=== PATIENT | female | born 1985 | race Caucasian/White ===

== ENCOUNTER 2016-08-24 12:32 | Emergency (ER) | payer MEDICAID ==
[~2016-08-24] VITALS: Ht 167.6 cm; Wt 92.5 kg
[2016-08-24 12:34] VITALS: Ht 167.6 cm; Wt 92.5 kg
[2016-08-24 14:07] LABS: URINE BLOOD (Dip) POC 1+ (NEGATIVE)
[2016-08-24] MEDS ORDERED: HYDR25SU23 PR (14:15)
[2016-08-24] MEDS ORDERED: METAM PO (14:16)
[2016-08-24] MEDS ORDERED: MAGN454C7 MC (14:17)
--- NOTE | 2016-08-24 15:45 | ERD ---
ER Documentation Chief Complaint Date/Time DATE: 08/24/16 TIME: 15:42 Chief Complaint Sent from MD for eval hemrrhoids HPI This is a 30-year-old female presents to the ER sent by her primary care doctor for evaluation of her hemorrhoids. Patient has had a hemorrhage over the last 3 days. Patient does have a history of hemorrhoids that she came . Patient admits to urinary frequency and dysuria. She denies any fevers or chills. She denies nausea vomiting or diarrhea. Patient denies any vaginal bleeding, pelvic pain, pelvic pressure, rectal pressure. She does admit to rectal pain secondary to hemorrhoids. Pain is worse whenever she has a bowel movement. ROS 12 point review of systems was done, all negative except per HPI. Medications Home Meds Active Scripts Magnesium Sulfate (Epsom Salt) 454 Gm Crystals, 454 GM MC BID for 3 Days Prov:GAUTAM MEDEL 08/24/16 Psyllium* (Metamucil*) 1 Pkt Susp, 1 PKT PO BID for 3 Days, PACKET Prov:GAUTAM MEDEL 08/24/16 Hydrocortisone Acetate (Anusol-Hc) 25 Mg Supp.rect, 1 SUPP KS BID Y for HEMORROID PAIN/ITCHING, #12 SUPP.RECT Prov:LIZYGAUTAM APONTE 08/24/16 Allergies Allergies: Coded Allergies: Penicillins (Unverified Allergy, Severe, 03/02/14) RE-ENTERED UNCODED ALLERGY CODED Uncoded Allergies: PCN (Allergy, Severe, 02/26/14) RESPIRATORY DISTRESS PMhx/Soc History of Surgery: Yes () Hx Alcohol Use: No Hx Substance Use: No Hx Tobacco Use: No Smoking Status: Never smoker Physical Exam Vitals Vital Signs Date Time Temp Pulse Resp B/P Pulse Ox O2 Delivery O2 Flow Rate FiO2 08/24/16 12:34 97.1 85 20 130/68 96 Physical Exam GENERAL: The patient is well developed and appropriate for usual state of health , in no apparent distress. HEENT: Atraumatic. CHEST: Clear to auscultation bilaterally. There are no rales, wheezes or rhonchi. HEART: Regular rate and rhythm. No murmurs, clicks, rubs or gallops. ABDOMEN: Soft, nontender and nondistended. Good bowel sounds. No rebound or guarding. No gross peritonitis. No gross organomegaly or masses. No Iyer sign or McBurney point tenderness. RECTAL: there is a moderately sized hemorrhoid in the rectum NEURO: Alert and oriented. SKIN: There is no apparent rash or petechia. The skin is warm and dry. Results 24 hrs Laboratory Tests Test 08/24/16 14:11 Bedside Urine pH (LAB) 6.5 Bedside Urine Protein (LAB) Negative Bedside Urine Glucose (UA) Negative Bedside Urine Ketones (LAB) Negative Bedside Urine Blood 1+ Bedside Urine Nitrite (LAB) Negative Bedside Urine Leukocyte Esterase (L Negative Procedures/MDM This is a 30-year-old female presents to the ER for hemorrhoids. At this time there is no evidence of a thrombosed hemorrhoid or any anal infection. Patient will be sent home with Epson salt, Metamucil, Anusol. Patient did not have a urinary tract infection on urine dip. He is afebrile and well-appearing. She does not have any vaginal bleeding, pelvic pain, vaginal discharge to indicate any problems with the . Patient has had a normal up to this point. Patient is to follow-up with her primary care doctor within 1-2 days return to ER sooner if symptoms worsen. My medical decision making with the patient she understands and agrees with plan. Departure Diagnosis: Primary Impression: Hemorrhoids Condition: Stable Patient Instructions: Treating Hemorrhoids: Self-Care Additional Instructions: Llame al doctor SYD y kristina margaux KARY PARA DENTRO DE 1-2 RAMIREZ.Dgale a la secretaria que nosotros le instruimos hacer esta kary.Avise o llame si kumar condicin se empeora antes de la kary. Regresa aqui si peor o no mejor. GAUTAM MEDEL Aug 24, 2016 15:45
== END 2016-08-24 14:27 | disposition home or self-care (01) ==
LOC: E/R 12:32
DX: O22.40 Hemorrhoids in pregnancy, unspecified trimester (principal); Z3A.00 Weeks of gestation of pregnancy not specified
CPT/HCPCS: 81003; Z7502; 99284

== ENCOUNTER 2016-10-03 10:09 | Inpatient (IN) | payer MEDICAID ==
[~2016-10-03] VITALS: Ht 167.6 cm; Wt 93.6 kg
[~2016-10-03 10:09] MED LIST: HYDR25SU23 PR; MAGN454C7 MC; METAM PO
[2016-10-03] MEDS ORDERED: PRENAT PO (10:29)
[2016-10-03 10:31] VITALS: Ht 167.6 cm; Wt 93.6 kg
[2016-10-03 10:32] VITALS: BP 130/81; PULSE 73; RESP 20
[2016-10-03] MEDS: LACTATED RINGER'S 1,000 ML IV SCH ×2 (10:46→16:59)
[2016-10-03] MEDS ORDERED: IBUPROFEN 600 MG TAB PO PRN (11:00)
[2016-10-03] MEDS ORDERED: LIDOCAINE 1% (MPF) 30 ML INJ INJ PRN (11:00)
[2016-10-03] MEDS ORDERED: MISOPROSTOL 200 MCG TAB PR PRN (11:00)
[2016-10-03] MEDS ORDERED: ACETAMINOPHEN/CODEINE #3 TAB PO PRN (11:00)
[2016-10-03] MEDS ORDERED: OXYTOCIN 30 UNITS/LR 500 ML IV SCH ×3 (11:00→19:15)
[2016-10-03] MEDS ORDERED: OXYTOCIN 30 UNITS/LR 500 ML IV PRN (11:00)
[2016-10-03] MEDS ORDERED: METHYLERGONOVINE 0.2 MG INJ IM PRN (11:00)
[2016-10-03] MEDS ORDERED: CARBOPROST 250 MCG INJ IM PRN (11:00)
[2016-10-03 11:40] LABS: BASOPHILS % 0.4 % (0.0-2.0); EOSINOPHILS # 0.2 10^3/ul (0.0-0.5); EOSINOPHILS % 1.8 % (0.0-7.0); HEMATOCRIT 36.2 % (37.0-47.0); LYMPHOCYTES % 23.7 % (15.0-51.0); MEAN CORPUSCULAR HEMOGLOBIN 29.3 pg (29.0-33.0); MEAN CORPUSCULAR HGB CONC 33.1 g/dl (32.0-37.0); MEAN CORPUSCULAR VOLUME 88.3 fl (82.0-101.0); MEAN PLATELET VOLUME 10.8 fl (7.4-10.4); MONOCYTE # 0.7 10^3/ul (0.3-0.9); MONOCYTES % 7.8 % (0.0-11.0); NEUTROPHIL # 5.5 10^3/ul (1.6-7.5); NEUTROPHILS % 65.9 % (39.0-77.0); PLATELET COUNT 283 10^3/UL (140-415); RED CELL DISTRIBUTION WIDTH 15.2 % (11.5-14.5); WHITE BLOOD COUNT 8.4 10^3/ul (4.8-10.8)
[2016-10-03 11:45] LABS: INR 0.95; PARTIAL THROMBOPLASTIN TIME 29.2 Sec (25.0-35.0); PROTIME 12.7 Sec (12.2-14.2)
[2016-10-03] MEDS ORDERED: LACTATED RINGER'S 1,000 ML IV PRN (12:00)
[2016-10-03] MEDS: BUTORPHANOL 2 MG INJ IV PRN (14:12)
[2016-10-04] MEDS: LACTATED RINGER'S 1,000 ML IV SCH ×2 (00:15→04:09)
[2016-10-04] MEDS: BUTORPHANOL 2 MG INJ IV PRN (00:32)
[2016-10-04] MEDS ORDERED: DIPHENHYDRAMINE 50 MG INJ IV PRN (02:30)
[2016-10-04] MEDS ORDERED: FENTAnyl 2MCG/ML-ROPIV 0.2% 100 ML BAG EPI SCH (02:30)
[2016-10-04] MEDS ORDERED: ONDANSETRON 4 MG INJ IV PRN (02:30)
[2016-10-04] MEDS ORDERED: NALOXONE (0.4 MG/ML) INJ IV PRN (02:30)
[2016-10-04] MEDS ORDERED: FENTAnyl 2MCG/ML-ROPIV 0.2% 100 ML ONE (02:32)
[2016-10-04] MEDS ORDERED: OXYTOCIN 30 UNITS/LR 500 ML IV SCH (08:38)
--- NOTE | 2016-10-04 08:43 | LDN ---
Date/Time of Note Date/Time of Note DATE: 10/04/16 TIME: 08:41 Delivery Summary of a viable baby girl weighing 3640 grams or 8#, 19.5" long, and with Appgars of 9/9. Weeks of Gestation 39 weeks Placenta Delivered: Spontaneously Meconium: none Episiotomy: No Perineal laceration: 1 Laceration repair: Very small first degree laceration repaired with 2-0 chromic. Anesthesia type: Epidural Estimated blood loss: 150 Sponge & Needle done & correct: Yes All needle counts correct: Yes Any foreign bodies felt in the: No (vagina) Problems: Delivery Information Sex Infant Sex: female Apgars 1 Minute: 9 5 Minute: 9 Suctioning Nose & mouth suctioned at darrius: Yes Delee suction performed: No Umbilical Cord Umbilical cord with: 3 Vessels Cord presentations: no nuchal cord Cord Blood was obtained: Yes Mother & Baby Disposition Disposition Mom & Baby to Maternity; Good: Yes Baby to NICU: No TIGIST NAJERA MD Oct 04, 2016 08:43
--- NOTE | 2016-10-04 08:50 | HP ---
Date/Time of Note Date/Time of Note DATE: 10/04/16 TIME: 08:43 OB - History Hx of Present Free Text/Dictation 30 y.o. A1 with an IUP at 39 weeks. Pt has had 3 prior vaginal deliveries and the last one was a for Breech and pt desires a . Pt is here for induction. Baby is about 3700 grams on US. Estimated Due Date: Oct 10, 2016 : 6 Para: 4 Spontaneous : 1 Care: Good Care Ultrasounds: Normal mid trimester US Obstetrical Complications: None Medical Complications: None, Respiratory (Asthma without recent exacerbations) Past Family/Social History * Past Medical, Surgical, Family and Obstetric Histories reviewed from chart. Blood Type: O+ Rubella: immune RPR/VDRL: Negative GBS Status: Negative HBsAG: Negative OB Admission Exam Vital Signs Vital Signs Vital Signs Date Time Temp Pulse Resp B/P Pulse Ox O2 Delivery O2 Flow Rate FiO2 10/03/16 10:32 98.2 73 20 130/81 Room Air Physical Exam HEENT: WNL Heart: Rhythm Normal Lungs: Clear Abdomen: WNL Extremities: Normal Reflexes: Normal Cervical Dilatation: 3cm Effacement: 75% Station: -3 Membranes: Intact Amniotic Fluid: Clear Heart Rate: 140's Accelerations: Accelerations Present Decelerations: No Decelerations Varibility: Moderate Contractions on Admission: < 5 Minutes Apart Last 72 hours Lab Results CBC & BMP 10/03/16 10:50 OB Assessment/Plan Reason for admission: induction of labor Other Assessment: For . Induction Method: AROM (First with pitocin augmentation only if needed.) TIGIST NAJERA MD Oct 04, 2016 08:50
[2016-10-04] MEDS ORDERED: OXYTOCIN 30 UNITS/LR 500 ML IV PRN (09:00)
[2016-10-04] MEDS ORDERED: OXYCODONE/ASPIRIN (4.88/325) TAB PO PRN (09:00)
[2016-10-04] MEDS ORDERED: WITCH HAZEL/GLYCERIN PAD PR PRN (09:00)
[2016-10-04] MEDS ORDERED: MISOPROSTOL 200 MCG TAB PR PRN (09:00)
[2016-10-04] MEDS ORDERED: METHYLERGONOVINE 0.2 MG INJ IM PRN (09:00)
[2016-10-04] MEDS ORDERED: LANOLIN 7 GM TUBE TOP PRN (09:00)
[2016-10-04] MEDS ORDERED: CARBOPROST 250 MCG INJ IM PRN (09:00)
[2016-10-04] MEDS ORDERED: BENZOCAINE 20% 56 ML SPRAY TOP PRN (09:00)
[2016-10-04 11:20] VITALS: BP 131/75; PULSE 72; RESP 16
[2016-10-04] MEDS: IBUPROFEN 600 MG TAB PO SCH ×3 (11:31→23:57)
[2016-10-04] MEDS: LACTATED RINGER'S 1,000 ML IV* SCH ×2 (14:40→19:00)
[2016-10-04 16:00] VITALS: BP 117/55; PULSE 79; RESP 16
[2016-10-04 19:30] VITALS: BP_SYST 121; PULSE 80; RESP 20
[2016-10-05] MEDS: LACTATED RINGER'S 1,000 ML IV* SCH ×2 (00:38→08:38)
[2016-10-05 04:00] VITALS: BP 129/61; PULSE 69; RESP 19
[2016-10-05] MEDS: IBUPROFEN 600 MG TAB PO SCH ×4 (05:39→23:56)
[2016-10-05 08:00] VITALS: BP 113/77; PULSE 65; RESP 65
--- NOTE | 2016-10-05 09:48 | PN ---
Date/Time of Note Date/Time of Note DATE: 10/05/16 TIME: 09:46 OB Subjective Subjective Subjective no c/o no b.m OB Objective Objective Objective vss afebrile fundus firm lochia mod ext edematous but no calf tenderness OB Assessment/Plan Other Assessment: stable post #1 Other plan: d/scharge home in am SANDOR ARITA MD Oct 05, 2016 09:48
[2016-10-05 09:50] LABS: BASOPHIL # 0.1 10^3/ul (0.0-0.1); BASOPHILS % 0.5 % (0.0-2.0); EOSINOPHILS # 0.2 10^3/ul (0.0-0.5); EOSINOPHILS % 2.1 % (0.0-7.0); HEMATOCRIT 33.2 % (37.0-47.0); LYMPHOCYTES # 2.7 10^3/ul (0.8-2.9); LYMPHOCYTES % 24.5 % (15.0-51.0); MEAN CORPUSCULAR HEMOGLOBIN 30.1 pg (29.0-33.0); MEAN CORPUSCULAR HGB CONC 33.1 g/dl (32.0-37.0); MEAN CORPUSCULAR VOLUME 90.7 fl (82.0-101.0); MEAN PLATELET VOLUME 10.8 fl (7.4-10.4); MONOCYTE # 0.7 10^3/ul (0.3-0.9); MONOCYTES % 6.2 % (0.0-11.0); NEUTROPHIL # 7.3 10^3/ul (1.6-7.5); NEUTROPHILS % 66.1 % (39.0-77.0); PLATELET COUNT 260 10^3/UL (140-415); RED BLOOD COUNT 3.66 10^6/ul (4.20-5.40); RED CELL DISTRIBUTION WIDTH 15.4 % (11.5-14.5); WHITE BLOOD COUNT 11.1 10^3/ul (4.8-10.8)
[2016-10-05 16:25] VITALS: BP 114/60; PULSE 64; RESP 18
[2016-10-05 19:20] VITALS: BP 113/67; PULSE 72; RESP 20
[2016-10-06 04:00] VITALS: BP 121/70; PULSE 68; RESP 19
[2016-10-06] MEDS: IBUPROFEN 600 MG TAB PO SCH ×2 (05:44→11:42)
--- NOTE | 2016-10-06 07:11 | DS ---
Date/Time of Note Date/Time of Note DATE: 10/06/16 TIME: 07:10 Obstetrical Discharge Record Final Diagnosis Final Diagnosis: Term delivered Vaginal Delivery Obstetrical Delivery: Spontaneous, Laceration, Repaired Condition on Discharge Physical Assessment Last Vitals: vss afebrile Voiding: Yes Bowel Movement: No Breast: Soft, non-tender Fundus: Firm Calf Tenderness: No Patient Condition: Stable SANDOR ARITA MD Oct 06, 2016 07:11
--- NOTE | 2016-10-06 07:12 | PD.PPDC ---
PRE PLANNING ADVISOR Discharge Instruction Diagnosis Final Diagnosis: s/p vaginal delivery after section Condition Patient Condition: Stable Diet Diet: Resume Regular Diet Activity/Restrictions Activity: May Shower Restrictions: No Lifting No Sexual Activity Nothing in the Vagina No Dorado No Tampons, douche Follow-up Follow-up with Physician: 2, Week/Weeks Return to clinic for POLICE CADET Instructions: Fever greater than 101 Chills Worsening abdominal pain Excessive Vaginal Bleeding More than 2 pads per hour Unable to tolerate diet OB Instructions: Breast Tenderness Depression Blurried Vision Headache SANDOR ARITA MD Oct 06, 2016 07:12
[2016-10-06 08:20] VITALS: BP 116/74; PULSE 66; RESP 18
[2016-10-06] MEDS ORDERED: DIPHTH/TET/ACEL PERTUSS (ADULT) 0.5 ML VIAL IM* ONE (09:00)
== END 2016-10-06 15:47 | disposition home or self-care (01) | DRG 775 ==
LOC: L-D 10:09 → PP1 10-04 11:36
PROVIDERS: ADMIT Obstetrics & Gynecology; ATTEND Obstetrics & Gynecology
PROC: 10E0XZZ Delivery of Products of Conception, External Approach (ICD-10-PCS; principal; 2016-10-04)
PROC: 3E033VJ Introduction of Other Hormone into Peripheral Vein, Percutaneous Approach (ICD-10-PCS; 2016-10-04)
PROC: 3E00X4Z Introduction of Serum, Toxoid and Vaccine into Skin and Mucous Membranes, External Approach (ICD-10-PCS; 2016-10-06)
DX: O70.0 First degree perineal laceration during delivery (principal); Z23 Encounter for immunization; O34.211 Maternal care for low transverse scar from previous cesarean delivery; Z3A.39 39 weeks gestation of pregnancy; Z37.0 Single live birth
CPT/HCPCS: 62319; 85025; 85610; 85730; 86592; 86850; 86900; 86901; 87340; 90715; A4310; J0595; J2590; J3010; J7120